=== PATIENT | male | born 1990 | race Caucasian/White ===

== ENCOUNTER 2023-10-27 07:25 | Emergency (ER) | payer BC, OTHER ==
[2023-10-27 07:47] VITALS: BP 183/119; PULSE 94; RESP 18; TEMP 99.6; BMI 27.8
== END 2023-10-27 09:10 | disposition home or self-care (01) ==
LOC: FER 07:25
PROC: 2W3CX1Z Immobilization of Right Lower Arm using Splint (ICD-10-PCS; principal; 2023-10-27)
DX: S62.316A Displaced fracture of base of fifth metacarpal bone, right hand, initial encounter for closed fracture (principal); W50.0XXA Accidental hit or strike by another person, initial encounter; Y92.9 Unspecified place or not applicable
CPT/HCPCS: 73130-TC-RT-FY; 99283-25